=== PATIENT | male | born 1995 | race Caucasian/White ===

== ENCOUNTER 2019-02-05 20:35 | Emergency (ER) | payer OTHER ==
[~2019-02-05] VITALS: Ht 185.4 cm; Wt 108.9 kg
== END 2019-02-05 23:29 | disposition home or self-care (01) ==
LOC: ER 20:35
DX: S80.02XA Contusion of left knee, initial encounter (principal); S60.051A Contusion of right little finger without damage to nail, initial encounter; W10.9XXA Fall (on) (from) unspecified stairs and steps, initial encounter; Y93.89 Activity, other specified; Y92.520 Airport as the place of occurrence of the external cause; Y99.8 Other external cause status